=== PATIENT | female | born 1970 | race Two or more races ===

== ENCOUNTER 2021-11-09 21:25 | Inpatient (IN) | payer MEDICAID, OTHER ==
[~2021-11-09] VITALS: Ht 162.6 cm; Wt 83.6 kg
[2021-11-09] MEDS ORDERED: LORazepam 2MG/ML-1ML VIAL IV ONE ×2 (22:30)
[2021-11-09] MEDS ORDERED: D5W/SOD CHLO 0.9% 1,000 ML IV ONE (22:30)
[2021-11-09 22:36] LABS: Basophils # (auto) 0.1 10 ^3/uL (0-0.2); Basophils % (auto) 0.7 % (0.0-2.0); Eosinophils # (auto) 0.1 10 ^3/uL (0-0.8); Eosinophils % (auto) 0.8 % (0.0-7.0); Hematocrit 38.1 % (36.0-46.0); Hemoglobin 12.9 g/dL (12.2-16.2); Lymphocytes # (auto) 2.2 10 ^3/uL (0.4-5.4); Lymphocytes % (auto) 28.8 % (10.0-50.0); Mean Corpuscular Hemoglobin 28.7 pg (28.0-32.0); Mean Corpuscular Hgb Conc. 33.9 g/dL (32.0-36.0); Mean Corpuscular Volume 84.7 fL (80.0-100.0); Monocytes # (auto) 0.5 10 ^3/uL (0-1.3); Monocytes % (auto) 6.5 % (0.0-12.0); Neutrophils # (auto) 4.8 10 ^3/uL (1.6-8.6); Neutrophils % (auto) 63.2 % (37.0-80.0); Nucleated Red Blood Cells % 0.2 %; Red Blood Cells 4.49 10^6/uL (4.0-5.20); Red Cell Distribution Width 13.8 % (11.8-14.3); White Blood Cell 7.5 10^3/uL (4.4-10.8)
[2021-11-09] MEDS ORDERED: MORPHINE SULFATE INJECTION 2 MG/ML SYRG IV ONE (22:45)
[2021-11-09] MEDS ORDERED: ATROPINE SULF 1 MG/10ml SYR IV ONE (22:45)
[2021-11-09 22:55] LABS: Calcium 8.9 mg/dL (8.5-10.1); Potassium 3.3 mmol/L (3.5-5.1)
[2021-11-09] MEDS ORDERED: ATROPINE SULFATE 1 MG/1 ML VIAL ONE (22:55)
[2021-11-09 22:59] LABS: BUN/Creatinine Ratio 14.8; Bilirubin, Total 1.4 mg/dL (0.2-1.0); Total Protein 6.5 g/dL (6.4-8.2)
[2021-11-09] MEDS ORDERED: NOREPINEPHRINE 8 MG/250ML KIT 250 ML IV ONE (23:40)
[2021-11-09] MEDS: NOREPINEPHRINE 8 MG/250ML KIT 250 ML IV SCH ×3 (23:46→23:58)
[2021-11-10] MEDS ORDERED: D5W/SOD CHLO 0.9% 1,000 ML IV ONE ×2 (00:15→03:45)
[2021-11-10] MEDS: NOREPINEPHRINE 8 MG/250ML KIT 250 ML IV SCH ×7 (00:16→02:00)
[2021-11-10] MEDS ORDERED: VANCOMYCIN 1GM/250ML 250 ML IV ONE ×2 (00:30→04:00)
[2021-11-10 01:18] LABS: Calcium 8.9 mg/dL (8.5-10.1); Magnesium 1.9 mg/dL (1.6-2.6)
[2021-11-10 01:21] LABS: Lactic Acid w/Reflex 2.4 mmol/L (0.4-2.0)
[2021-11-10] MEDS ORDERED: DexAMETHasone SOD PHOS 10MG/1ML VIAL INJ IV ONE (01:30)
[2021-11-10] MEDS ORDERED: VANCOMYCIN PER PHARMACY 0 MG IV SCH (02:15)
[2021-11-10] MEDS ORDERED: MORPHINE SULFATE INJECTION 2 MG/ML SYRG IV PRN ×2 (03:00→12:00)
[2021-11-10] MEDS ORDERED: NITROGLYCERIN 0.4 MG SL TAB SL PRN (03:00)
[2021-11-10] MEDS ORDERED: MORPHINE SULFATE 4 MG/ML SYR/VIAL IV PRN (03:00)
[2021-11-10] MEDS ORDERED: ONDANSETRON HCL 4 MG/2 ML VIAL IV PRN ×2 (03:00→12:00)
[2021-11-10] MEDS ORDERED: ACETAMINOPHEN 325 MG TAB PO PRN (03:00)
[2021-11-10] MEDS ORDERED: DOCUSATE SOD 100 MG CAP PO PRN (03:00)
[2021-11-10] MEDS: SODIUM CHLORIDE 0.9% 1,000 ML IV SCH ×2 (04:02→23:17)
[2021-11-10] MEDS: POTASSIUM CHL 10MEQ/50ML 50 ML IV SCH ×2 (04:09→05:20)
[2021-11-10] MEDS ORDERED: AZITHROMYCIN 500MG/ 250ML 250 ML IV ONE (04:50)
[2021-11-10 05:26] LABS: Basophils # (auto) 0 10 ^3/uL (0-0.2); Basophils % (auto) 0.1 % (0.0-2.0); Eosinophils # (auto) 0 10 ^3/uL (0-0.8); Eosinophils % (auto) 0.1 % (0.0-7.0); Lymphocytes # (auto) 0.3 10 ^3/uL (0.4-5.4); Lymphocytes % (auto) 2.8 % (10.0-50.0); Mean Corpuscular Hemoglobin 28.5 pg (28.0-32.0); Mean Corpuscular Hgb Conc. 33.4 g/dL (32.0-36.0); Mean Corpuscular Volume 85.4 fL (80.0-100.0); Monocytes # (auto) 0.3 10 ^3/uL (0-1.3); Neutrophils # (auto) 8.5 10 ^3/uL (1.6-8.6); Red Blood Cells 4.57 10^6/uL (4.0-5.20); Red Cell Distribution Width 14.2 % (11.8-14.3)
[2021-11-10 05:49] LABS: Potassium 4.2 mmol/L (3.5-5.1)
[2021-11-10] MEDS ORDERED: metroNIDAZOLE 500MG/100ML 100 ML IV SCH (06:00)
[2021-11-10 06:02] LABS: Alcohol, Urine < 3.0 mg/dL (0-10); Amphetamine Screen, Urine POSITIVE (NEGATIVE); Barbiturate Scree,Urine NEGATIVE (NEGATIVE); Benzodiazephine Screen, Urine NEGATIVE (NEGATIVE); Cannabinoid Screen, Urine NEGATIVE (NEGATIVE); Cocaine Screen, Urine NEGATIVE (NEGATIVE); Opiate Scree,Urine NEGATIVE (NEGATIVE); Phencyclidine Screen, Urine NEGATIVE (NEGATIVE)
[2021-11-10 06:10] LABS: Albumin 2.6 g/dL (3.4-5.0); BUN/Creatinine Ratio 11.5; Calcium 8.3 mg/dL (8.5-10.1); Total Protein 6.2 g/dL (6.4-8.2)
[2021-11-10] MEDS: MULTIPLE VITAMIN TAB PO SCH (08:34)
[2021-11-10] MEDS: ASCORBIC ACID 500 MG TAB PO SCH ×3 (08:34→23:17)
[2021-11-10] MEDS: ZINC SULFATE 220mg CAP or TAB PO SCH (08:34)
[2021-11-10] MEDS ORDERED: DexAMETHasone SOD PHOS 10MG/1ML VIAL INJ IV SCH (10:00)
[2021-11-10] MEDS ORDERED: ENOXAPARIN SOD 40 MG/0.4 ML SYRINGE SC SCH (10:00)
[2021-11-10] MEDS ORDERED: FAMOTIDINE (10MG/ML) 2ML VL IV SCH (10:00)
[2021-11-10] MEDS ORDERED: AZITHROMYCIN 500MG/ 250ML 250 ML IV SCH (10:00)
[2021-11-10] MEDS ORDERED: PANTOPRAZOLE 40 MG/10 ML VIAL INJ IV ONE (12:00)
[2021-11-10] MEDS ORDERED: MEROPENEM 1GM IVPB 100 ML IV ONE (12:00)
[2021-11-10] MEDS ORDERED: LORazepam 0.5 MG TAB PO PRN (12:00)
[2021-11-10] MEDS ORDERED: VANCOMYCIN 1GM/250ML 250 ML IV SCH (13:00)
[2021-11-10] MEDS ORDERED: MEROPENEM 1GM IVPB 100 ML IV SCH (14:00)
[2021-11-10] MEDS ORDERED: levoFLOXacin 750MG 150 ML IV SCH (16:00)
[2021-11-10 16:54] VITALS: BP 113/70
[2021-11-10 20:00] VITALS: BP 140/88
[2021-11-10 22:00] VITALS: BP 104/64
[2021-11-10] MEDS: ENOXAPARIN SOD 80 MG/0.8ML SYRINGE SC SCH (23:18)
[2021-11-11 05:00] VITALS: BP 105/68
[2021-11-11 07:39] LABS: Potassium 3.9 mmol/L (3.5-5.1)
[2021-11-11 07:42] LABS: Basophils # (auto) 0 10 ^3/uL (0-0.2); Basophils % (auto) 0.2 % (0.0-2.0); Eosinophils # (auto) 0 10 ^3/uL (0-0.8); Hematocrit 39.5 % (36.0-46.0); Lymphocytes # (auto) 1.9 10 ^3/uL (0.4-5.4); Lymphocytes % (auto) 14.1 % (10.0-50.0); Mean Corpuscular Hemoglobin 28.1 pg (28.0-32.0); Mean Corpuscular Volume 85.3 fL (80.0-100.0); Monocytes # (auto) 1.1 10 ^3/uL (0-1.3); Monocytes % (auto) 8.5 % (0.0-12.0); Neutrophils # (auto) 10.1 10 ^3/uL (1.6-8.6); Neutrophils % (auto) 77.2 % (37.0-80.0); Nucleated Red Blood Cells % 0.1 %; Red Blood Cells 4.63 10^6/uL (4.0-5.20); Red Cell Distribution Width 14.2 % (11.8-14.3); White Blood Cell 13.1 10^3/uL (4.4-10.8)
[2021-11-11 07:58] LABS: INR 1.13 (0.9-1.15); Partial Thromboplastin Time 27.3 sec (23.6-33.0)
[2021-11-11 08:05] LABS: Albumin 2.4 g/dL (3.4-5.0); Bilirubin, Total 0.9 mg/dL (0.2-1.0); Calcium 8.5 mg/dL (8.5-10.1); Phosphorus 2.9 mg/dL (2.5-4.90); Total Protein 5.9 g/dL (6.4-8.2)
[2021-11-11 08:56] VITALS: BP 99/54
[2021-11-11] MEDS ORDERED: VANCOMYCIN 1GM/250ML 250 ML IV SCH (09:00)
[2021-11-11 09:01] LABS: CRP High Sensitivity 3.96 mg/dL (< 0.3)
[2021-11-11] MEDS: ENOXAPARIN SOD 80 MG/0.8ML SYRINGE SC SCH ×2 (09:40→22:32)
[2021-11-11] MEDS: MULTIPLE VITAMIN TAB PO SCH (09:40)
[2021-11-11] MEDS: ASCORBIC ACID 500 MG TAB PO SCH ×2 (09:40→22:32)
[2021-11-11] MEDS: ZINC SULFATE 220mg CAP or TAB PO SCH (09:40)
[2021-11-11] MEDS: HYDROcodone-ACET 5/325MG TAB PO PRN ×2 (09:42→18:30)
[2021-11-11] MEDS ORDERED: PANTOPRAZOLE 40 MG/10 ML VIAL INJ IV SCH (10:00)
[2021-11-11] MEDS ORDERED: AZITHROMYCIN 500MG/ 250ML 250 ML IV SCH (10:00)
[2021-11-11] MEDS ORDERED: BUPR1MIS SL (10:50)
[2021-11-11] MEDS ORDERED: GABA400C11 PO (10:50)
[2021-11-11] MEDS ORDERED: levoFLOXacin 750MG 150 ML IV SCH (11:00)
[2021-11-11] MEDS: SODIUM CHLORIDE 0.9% 1,000 ML IV SCH (12:20)
[2021-11-11 12:35] VITALS: BP 93/62
[2021-11-11 17:00] VITALS: BP 99/69
[2021-11-11 20:00] VITALS: BP 115/67
[2021-11-11 21:20] VITALS: BP 115/67
[2021-11-13 16:39] LABS: Hepatitis A Ab IgM Negative; Hepatitis B Core IgM Negative; Hepatitis C Antibody Negative (Negative)
== END 2021-11-11 23:12 | disposition left against medical advice (07) | DRG 871 ==
LOC: EDBD 21:25 → ER 21:36 → TELE 11-10 02:53 → WEST WING 11-10 15:29 → TELE-WESTW 11-10 15:34
PROVIDERS: ADMIT Nurse Practitioner Family; ATTEND Hospitalist
DX: A41.9 Sepsis, unspecified organism (principal); K85.90 Acute pancreatitis without necrosis or infection, unspecified; R65.21 Severe sepsis with septic shock; I21.A1 Myocardial infarction type 2; N30.00 Acute cystitis without hematuria; I50.20 Unspecified systolic (congestive) heart failure; K80.60 Calculus of gallbladder and bile duct with cholecystitis, unspecified, without obstruction; E87.6 Hypokalemia; I44.0 Atrioventricular block, first degree; F19.10 Other psychoactive substance abuse, uncomplicated; K44.9 Diaphragmatic hernia without obstruction or gangrene; Z20.822 Contact with and (suspected) exposure to COVID-19
CPT/HCPCS: 36415; 36600; 51702; 74181; 76856; 80053; 80061; 80074; 80307; 82310; 82550; 82805; 82962; 83036; 83605; 83615; 83690; 83735; 83880; 84100; 84443; 84484; 85025; 85379; 85610; 85652; 85730; 86141; 86850; 86900; 86901; 87040; 87426; 93005; 93306; 96361; 96365; 96366; 96367; 96372; 96375; 99291; C9113; G0378; J0461; J1100; J1956; J3490